=== PATIENT | male | born 1965 | race African-American/Black ===

== ENCOUNTER 2018-08-27 15:07 | Emergency (ER) | payer OTHER ==
[~2018-08-27] VITALS: Ht 172.7 cm; Wt 113.6 kg
[2018-08-27] MEDS ORDERED: METF-445 PO (15:09)
[2018-08-27] MEDS ORDERED: IBUP-2071 PO (15:09)
[2018-08-27] MEDS ORDERED: BP PILL (15:11)
[2018-08-27] MEDS ORDERED: [UNRECOGNIZED DRUG - REMARK] (15:11)
[2018-08-27] MEDS ORDERED: [UNRECOGNIZED DRUG - REMARK] (15:11)
[2018-08-27 15:24] LABS: GLUCOSE,POINT OF CARE 370 MG/DL (70-110)
[2018-08-27 16:48] VITALS: BP 129/90
== END 2018-08-27 16:59 | disposition home or self-care (01) ==
LOC: EMS 15:07
DX: B35.6 Tinea cruris (principal); E11.9 Type 2 diabetes mellitus without complications; I10 Essential (primary) hypertension; F17.210 Nicotine dependence, cigarettes, uncomplicated; Z79.84 Long term (current) use of oral hypoglycemic drugs; Z79.899 Other long term (current) drug therapy
CPT/HCPCS: 99282